=== PATIENT | male | born 1990 | race Caucasian/White ===

== ENCOUNTER 2019-01-06 06:04 | Inpatient (IN) | payer OTHER ==
[~2019-01-06] VITALS: Ht 172.7 cm; Wt 90.8 kg
--- NOTE | 2019-01-06 06:30 | NUR ---
PT. REPORTS PAIN TO INCISION FROM SCROTAL SURGERY ON December. THIS PAIN STARTED THIS AM. ALSO REPORTS PAINFUL URINATION THIS AM AND LOWER ABD/FLANK PAIN ALONG WITH NAUSEA. DENIES VOMITING OR DIARRHEA. STATES PAIN IS WORSE ON LEFT THAN ON RIGHT FLANK/ABD. PT. AMBULATORY TO BR FOR UA.
--- NOTE | 2019-01-06 06:59 | NUR ---
IV ESTABLISHED AND BLOOD DRAWN WITH IV START. URINE HAS BEEN SENT TO LAB.
[2019-01-06] MEDS ORDERED: SODIUM CHLORIDE FLUSH 10ML SYR IVF ONE (07:00)
[2019-01-06] MEDS ORDERED: EMTR1TAB8 PO (07:00)
--- NOTE | 2019-01-06 07:01 | NUR ---
DR. ADLER AT BS TO EVAL PT. AND DISCUSS POC.
--- NOTE | 2019-01-06 07:06 | NUR ---
REPORT TO FELICIANO LAM.
[2019-01-06 07:13] LABS: MICROSCOPIC NOT IND
--- NOTE | 2019-01-06 07:15 | NUR ---
REC BS REPORT PT RESTING WAITING RESULTS
[2019-01-06] MEDS ORDERED: VANCOMYCIN PER PHARMACY IV ONE (07:30)
[2019-01-06] MEDS ORDERED: ONDANSETRON 2MG/ML, 2ML IVPush ONE (07:30)
[2019-01-06] MEDS ORDERED: VANCOMYCIN 1,700 MG in SODIUM CHLORIDE 0.9% 250 ML IV ONE (07:30)
[2019-01-06] MEDS ORDERED: SODIUM CHLORIDE 0.9% 1,000ML IVBOLUS ONE (07:30)
[2019-01-06 07:32] LABS: BASOPHILS # (AUTO) 0.02 x10^3/uL (0-0.1); BASOPHILS % (AUTO) 0 % (0-1); EOSINOPHILS # (AUTO) 0.03 x10^3/uL (0-0.4); EOSINOPHILS % (AUTO) 0 % (1-7); LYMPHOCYTES # (AUTO) 1.54 x10^3/uL (1-3.4); LYMPHOCYTES % (AUTO) 10 % (22-44); MD NO; MEAN CORPUSCULAR HEMOGLOBIN 33.3 pg (27.5-34.5); MEAN CORPUSCULAR HGB CONC 33.6 g/dL (33.2-36.2); MEAN CORPUSCULAR VOLUME 99.2 fL (81-97); MONOCYTES # (AUTO) 1.32 x10^3/uL (0.2-0.8); MONOCYTES % (AUTO) 8 % (2-9); NEUTROPHILS # (AUTO) 12.89 x10^3/uL (1.8-6.8); NEUTROPHILS % (AUTO) 82 % (42-75); PLATELET COUNT 257 x10^3/uL (130-400); RED BLOOD COUNT 4.85 x10^6/uL (4.38-5.82); RED CELL DISTRIBUTION WIDTH 12.4 % (9.4-14.8)
[2019-01-06 07:35] LABS: ANION GAP 6 mmol/L (5-15); CALCIUM 9.1 mg/dL (8.5-10.1); CHLORIDE 108 mmol/L (98-107)
[2019-01-06] MEDS ORDERED: DOXYCYCLINE 100MG TABLET PO ONE (08:30)
--- NOTE | 2019-01-06 08:57 | NUR ---
received report from branden Phillips laying on gubrayan awake & calm, responds approp to staff, NAD, comfort measures provided, call light within reach.
[2019-01-06] MEDS ORDERED: NAPROXEN 500 MG TABLET PO ONE (09:00)
[2019-01-06] MEDS ORDERED: DOXYCYCLINE 100MG TABLET ONE (09:16)
[2019-01-06] MEDS ORDERED: NAPROXEN 500 MG TABLET ONE (09:16)
--- NOTE | 2019-01-06 09:51 | NUR ---
Pt to be admitted to med-onc, room 346. Report called to Gisele.
--- NOTE | 2019-01-06 09:58 | NUR ---
surgeon at Addendum: 01/06/19 at 1002 by [facility] at
[2019-01-06] MEDS: SODIUM CHLORIDE 0.9% 1,000 ML IV SCH ×2 (11:29→21:58)
[2019-01-06] MEDS: KETOROLAC 30 MG/1 ML IVPush PRN (11:29)
[2019-01-06] MEDS ORDERED: hydrALAzine 20 MG/ML, 1ML IVPush PRN (11:30)
[2019-01-06] MEDS ORDERED: ONDANSETRON 2MG/ML, 2ML IVPush PRN (11:30)
[2019-01-06] MEDS ORDERED: PHARMACY INSTRUCTION MC SCH (11:30)
[2019-01-06] MEDS ORDERED: TEMAZEPAM 15 MG CAPSULE PO PRN (11:30)
[2019-01-06 12:00] VITALS: BP 116/79
[2019-01-06] MEDS: CIPROFLOXACIN/PMX 400MG/200ML 200 ML IV SCH (12:40)
[2019-01-06] MEDS: ENOXAPARIN 40 MG/0.4 ML SQ SCH (12:41)
[2019-01-06] MEDS: OXYcodone IR 5MG TABLET PO PRN ×3 (13:57→21:58)
[2019-01-06 14:30] VITALS: BP 120/76
[2019-01-06 19:04] VITALS: BP 134/76
[2019-01-07] MEDS: CIPROFLOXACIN/PMX 400MG/200ML 200 ML IV SCH ×2 (00:36→11:42)
[2019-01-07 02:41] VITALS: BP 103/55
[2019-01-07] MEDS: OXYcodone IR 5MG TABLET PO PRN ×5 (02:49→20:16)
[2019-01-07 05:15] LABS: ALBUMIN 3.2 g/dL (3.4-5.0); ANION GAP 5 mmol/L (5-15); CALCIUM 8.1 mg/dL (8.5-10.1); CHLORIDE 107 mmol/L (98-107)
[2019-01-07 05:18] LABS: ALANINE AMINOTRANSFERASE 43 U/L (12-78); ALKALINE PHOSPHATASE 79 U/L (45-117); BILIRUBIN,TOTAL 1.2 mg/dL (0.2-1.0); CREATININE 0.98 mg/dL (0.7-1.3); TOTAL PROTEIN 6.9 g/dL (6.4-8.2)
[2019-01-07 05:21] LABS: BASOPHILS # (AUTO) 0.04 x10^3/uL (0-0.1); BASOPHILS % (AUTO) 0 % (0-1); EOSINOPHILS # (AUTO) 0.11 x10^3/uL (0-0.4); EOSINOPHILS % (AUTO) 1 % (1-7); LYMPHOCYTES # (AUTO) 1.81 x10^3/uL (1-3.4); LYMPHOCYTES % (AUTO) 12 % (22-44); MD NO; MEAN CORPUSCULAR HEMOGLOBIN 33.5 pg (27.5-34.5); MEAN CORPUSCULAR HGB CONC 33.1 g/dL (33.2-36.2); MEAN CORPUSCULAR VOLUME 101.2 fL (81-97); MEAN PLATELET VOLUME 7.9 fL (7.4-10.4); MONOCYTES # (AUTO) 0.91 x10^3/uL (0.2-0.8); MONOCYTES % (AUTO) 6 % (2-9); NEUTROPHILS # (AUTO) 11.81 x10^3/uL (1.8-6.8); NEUTROPHILS % (AUTO) 81 % (42-75); PLATELET COUNT 218 x10^3/uL (130-400); RED BLOOD COUNT 4.36 x10^6/uL (4.38-5.82); RED CELL DISTRIBUTION WIDTH 12.6 % (9.4-14.8)
[2019-01-07] MEDS: SODIUM CHLORIDE 0.9% 1,000 ML IV SCH ×2 (06:14→15:05)
[2019-01-07 08:27] VITALS: BP 118/69
[2019-01-07] MEDS: ACETAMINOPHEN 325 MG TABLET PO PRN (08:38)
[2019-01-07] MEDS: POLYETHYLENE GLYCOL 17 GM PACKET PO SCH (10:14)
[2019-01-07] MEDS: KETOROLAC 30 MG/1 ML IVPush PRN ×2 (10:14→17:04)
[2019-01-07] MEDS: ENOXAPARIN 40 MG/0.4 ML SQ SCH (12:16)
[2019-01-07 14:20] VITALS: BP 133/74
[2019-01-07] MEDS: LINEZOLID PMX 600MG/300ML 300 ML IV SCH (15:22)
[2019-01-07 19:05] VITALS: BP 114/67
[2019-01-08] MEDS: LINEZOLID PMX 600MG/300ML 300 ML IV SCH ×2 (00:54→13:48)
[2019-01-08] MEDS: SODIUM CHLORIDE 0.9% 1,000 ML IV SCH ×2 (00:54→11:12)
[2019-01-08] MEDS: ACETAMINOPHEN 325 MG TABLET PO PRN (01:05)
[2019-01-08 01:06] VITALS: BP 112/75
[2019-01-08 05:01] LABS: BASOPHILS # (AUTO) 0.04 x10^3/uL (0-0.1); BASOPHILS % (AUTO) 0 % (0-1); EOSINOPHILS # (AUTO) 0.33 x10^3/uL (0-0.4); EOSINOPHILS % (AUTO) 3 % (1-7); LYMPHOCYTES # (AUTO) 2.01 x10^3/uL (1-3.4); LYMPHOCYTES % (AUTO) 17 % (22-44); MD NO; MEAN CORPUSCULAR HEMOGLOBIN 34.1 pg (27.5-34.5); MEAN CORPUSCULAR HGB CONC 33.6 g/dL (33.2-36.2); MEAN CORPUSCULAR VOLUME 101.3 fL (81-97); MEAN PLATELET VOLUME 7.9 fL (7.4-10.4); MONOCYTES # (AUTO) 1.01 x10^3/uL (0.2-0.8); MONOCYTES % (AUTO) 9 % (2-9); NEUTROPHILS # (AUTO) 8.33 x10^3/uL (1.8-6.8); NEUTROPHILS % (AUTO) 71 % (42-75); PLATELET COUNT 221 x10^3/uL (130-400); RED BLOOD COUNT 3.99 x10^6/uL (4.38-5.82); RED CELL DISTRIBUTION WIDTH 12.5 % (9.4-14.8)
[2019-01-08 07:58] VITALS: BP 135/94
[2019-01-08] MEDS: EMTRICITABINE/TENOFOVIR 200 MG/300 MG TABLET PO SCH (08:12)
[2019-01-08] MEDS: POLYETHYLENE GLYCOL 17 GM PACKET PO SCH (08:13)
[2019-01-08] MEDS: ENOXAPARIN 40 MG/0.4 ML SQ SCH (11:12)
[2019-01-08 12:16] VITALS: BP 134/76
[2019-01-08 20:43] VITALS: BP 143/95
[2019-01-09] MEDS: LINEZOLID PMX 600MG/300ML 300 ML IV SCH (01:12)
[2019-01-09 01:14] VITALS: BP 141/76
[2019-01-09 06:55] VITALS: BP 140/87
[2019-01-09 07:55] LABS: BASOPHILS # (AUTO) 0.02 x10^3/uL (0-0.1); BASOPHILS % (AUTO) 0 % (0-1); EOSINOPHILS # (AUTO) 0.24 x10^3/uL (0-0.4); EOSINOPHILS % (AUTO) 3 % (1-7); LYMPHOCYTES # (AUTO) 1.59 x10^3/uL (1-3.4); LYMPHOCYTES % (AUTO) 18 % (22-44); MD NO; MEAN CORPUSCULAR HEMOGLOBIN 33.8 pg (27.5-34.5); MEAN CORPUSCULAR HGB CONC 33.8 g/dL (33.2-36.2); MEAN PLATELET VOLUME 7.9 fL (7.4-10.4); MONOCYTES # (AUTO) 0.76 x10^3/uL (0.2-0.8); MONOCYTES % (AUTO) 8 % (2-9); NEUTROPHILS # (AUTO) 6.42 x10^3/uL (1.8-6.8); NEUTROPHILS % (AUTO) 71 % (42-75); PLATELET COUNT 280 x10^3/uL (130-400); RED CELL DISTRIBUTION WIDTH 12.4 % (9.4-14.8)
[2019-01-09 08:08] LABS: CHLORIDE 107 mmol/L (98-107)
[2019-01-09 08:15] LABS: ALANINE AMINOTRANSFERASE 48 U/L (12-78); ALBUMIN 3.2 g/dL (3.4-5.0); ALKALINE PHOSPHATASE 100 U/L (45-117); ANION GAP 8 mmol/L (5-15); BILIRUBIN,TOTAL 0.6 mg/dL (0.2-1.0); CALCIUM 8.8 mg/dL (8.5-10.1); CREATININE 0.89 mg/dL (0.7-1.3); TOTAL PROTEIN 7.6 g/dL (6.4-8.2)
[2019-01-09] MEDS: EMTRICITABINE/TENOFOVIR 200 MG/300 MG TABLET PO SCH (08:46)
[2019-01-09] MEDS: POLYETHYLENE GLYCOL 17 GM PACKET PO SCH (08:46)
[2019-01-09] MEDS ORDERED: IBUP-1222 PO (11:15)
[2019-01-09] MEDS ORDERED: LINE600T37 PO (11:15)
[2019-01-09] MEDS ORDERED: ACET325T14 PO (11:15)
== END 2019-01-09 12:00 | disposition home or self-care (01) | DRG 862 ==
LOC: ED 08:12 → EDIP 08:42 → 3NW 10:29
PROVIDERS: ADMIT Internal Medicine; ATTEND Internal Medicine
DX: T81.49XA Infection following a procedure, other surgical site, initial encounter (principal); A41.9 Sepsis, unspecified organism; N45.3 Epididymo-orchitis; N43.3 Hydrocele, unspecified; K59.00 Constipation, unspecified; N50.89 Other specified disorders of the male genital organs; Z88.0 Allergy status to penicillin
CPT/HCPCS: 36415; 76870; 80048; 80053; 81003; 82040; 83605; 83735; 84100; 84145; 85025; 87040; 87070; 87147; 87181; 87205; 87491; 87591; 96365; 96366; 96375; G0378; J0744; J1650; J1885; J2020; J2405; J3370; J7030; J7050